=== PATIENT | male | born 1975 | race African-American/Black ===

== ENCOUNTER 2017-09-07 09:48 | Emergency (ER) | payer BC ==
[~2017-09-07] VITALS: Ht 185.4 cm; Wt 107.5 kg
[~2017-09-07 09:48] MED LIST: BACTRIM,SEPT1 TABLET PO; TRAMADOL HCL50 MG PO
[2017-09-07 10:36] LABS: APPEARANCE CLEAR ((CLEAR)); BILIRUBIN NEGATIVE; BLOOD MODERATE; COLOR YELLOW ((YELLOW)); GLUCOSE (STRIP) NEGATIVE; KETONES NEGATIVE; LEUKOCYTES NEGATIVE; NITRITE NEGATIVE; PROTEIN (STRIP) NEGATIVE; UROBILINOGEN 0.2 MG/DL (0.2-1.0)
[2017-09-07 10:41] LABS: BACTERIA NONE SEEN /HPF; EPITHELIAL CELLS RARE /HPF; MUCUS TRACE /LPF; UCUL ADDED? NO; WHITE BLOOD CELLS 0-5 /HPF (0-5)
[2017-09-07 10:57] LABS: ALBUMIN 4.4 G/DL (3.2-4.8); ALKALINE PHOSPHATASE 47 IU/L (3-129); ALT (GPT) 17 IU/L (3-49); AST (GOT) 20 IU/L (2-34); CHLORIDE 105 MEQ/L (99-109); GFR ESTIMATE (CALCULATED) > 59 mL/min/ (58.99-99999); GLUCOSE 105 mg/dL (70-99); SODIUM 141 MEQ/L (136-147); TOTAL BILIRUBIN 0.6 MG/DL (0.0-1.0); TOTAL PROTEIN 7.2 G/DL (6.4-8.3); UREA NITROGEN (BUN) 14 mg/dL (9-23)
[2017-09-07 11:16] LABS: HEMATOCRIT 52.5 % (38.0-50.0); HEMOGLOBIN 17.2 G/DL (12.5-16.6); MCH 26.5 PG (29.0-34.0); MCHC 32.8 G/DL (30.0-36.0); MCV 80.8 FL (86-99); PLATELET COUNT 193 K/uL (156-360); RBC DIS.WIDTH-CV 14.9 % (11.8-14.6); RBC DIS.WIDTH-SD 42.8 % (39-53); WHITE BLOOD COUNT 8.9 K/uL (4.1-10.2)
[2017-09-07 11:34] VITALS: BP 149/97
== END 2017-09-07 11:34 | disposition home or self-care (01) ==
LOC: EME 09:48
DX: N34.1 Nonspecific urethritis (principal); J45.909 Unspecified asthma, uncomplicated; F17.200 Nicotine dependence, unspecified, uncomplicated
CPT/HCPCS: 80053; 81003; 85027; 99281; 99284; J0696